=== PATIENT | female | born 1990 | race Caucasian/White ===

== ENCOUNTER 2016-03-26 21:15 | Emergency (ER) | payer SELFPAY ==
[2016-03-26] MEDS ORDERED: OPTIRAY 350 100 ML VIAL HMH IV ONE (21:16)
== END 2016-03-27 03:19 | disposition home or self-care (01) ==
LOC: ER 21:15
DX: N30.00 Acute cystitis without hematuria (principal); F41.1 Generalized anxiety disorder; Z79.899 Other long term (current) drug therapy; F17.210 Nicotine dependence, cigarettes, uncomplicated
CPT/HCPCS: 36415; 71020; 71260; 80053; 80307; 81001; 84439; 84443; 85025; 87088; 87186; 93005